=== PATIENT | male | born 1960 | race Caucasian/White ===

== ENCOUNTER 2021-04-09 19:22 | Emergency (ER) | payer OTHER ==
[~2021-04-09] VITALS: Ht 188 cm; Wt 95.3 kg
--- NOTE | 2021-04-09 20:23 | NUR ---
Dr. Nation at bedside for staple placement of head laceration.
[2021-04-09] MEDS ORDERED: ONDA4TAB5 GT (20:37)
--- NOTE | 2021-04-09 20:59 | NUR ---
Patient discharged to home in stable condition. Written and verbal after care instructions given. Patient verbalizes understanding of instructions. Stressed follow up or return to ER for worsening s/s.
[2021-04-09 21:00] VITALS: BP 129/96
== END 2021-04-09 21:00 | disposition home or self-care (01) ==
LOC: ER 19:22
DX: R55 Syncope and collapse (principal); S01.01XA Laceration without foreign body of scalp, initial encounter; W18.30XA Fall on same level, unspecified, initial encounter; Y92.89 Other specified places as the place of occurrence of the external cause; I10 Essential (primary) hypertension; Z96.643 Presence of artificial hip joint, bilateral; R94.31 Abnormal electrocardiogram [ECG] [EKG]
CPT/HCPCS: 93005; A4217; A4663; J3490; L8699